=== PATIENT | male | born 1995 ===

== ENCOUNTER 2024-11-04 11:58 | Emergency (ER) | payer SELFPAY ==
[2024-11-04] MEDS: Ondansetron 4 MG Tab.DIS PO ONE (12:47)
[2024-11-04] MEDS: Ondansetron 4 MG/2 ML SDV IVPUSH ONE (13:08)
[2024-11-04] MEDS: Sodium Chloride 0.9% 1,000 ML IV ONE (13:08)
== END 2024-11-04 13:12 | disposition home or self-care (01) ==
LOC: MW.ED 11:58
DX: R19.7 Diarrhea, unspecified (principal); R11.2 Nausea with vomiting, unspecified; F17.210 Nicotine dependence, cigarettes, uncomplicated; Z79.899 Other long term (current) drug therapy; Z75.8 Other problems related to medical facilities and other health care
CPT/HCPCS: 87428; 99284; A9270; 99283